=== PATIENT | female | born 2000 | race African-American/Black ===

== ENCOUNTER 2023-02-22 11:24 | Inpatient (IN) ==
--- NOTE | 2023-02-22 13:22 | XRay Report ---
XR lumbar spine min 4V routine CLINICAL HISTORY: Low back pain. Left buttock pain. COMPARISON STUDY: None. FINDINGS: Straightening of the lumbar spine. No fracture or subluxation. Disc spaces are preserved. T he visualized sacrum is intact. Punctate ossific density at the tip of the L4 spinous process is like ly chronic. The visualized sacrum is intact. Mild levoscoliosis of the lumbar spine. Punctate calcifi cation within the left deep pelvis is nonspecific but favors a phlebolith. IMPRESSION: No fracture or subluxation within the lumbar spine. ACT 112: Negative or not required by law. Electronically signed by: Claude Muñiz M.D. 02/22/2023 1:20 PM
--- NOTE | 2023-02-22 14:14 | Emergency Department Note ---
History of Present Illness General Chief complaint: Back Injury/Pain Stated complaint: LT SIDE BACK PAIN, HURTS WHEN BREATHING Time Seen by Provider: 02/22/23 13:49 History of Present Illness Maximum Pain Intensity: 6 This is a 22-year-old female that presents to the emergency department via private vehicle referred by [facility] with complaints of "chest pain, pain with a deep breath, back pain". Per review of the emergency transfer information as provided by [facility], patient's medical history is significant for that of anxiety, depression, PTSD, ADHD, insomnia, acid reflux. Patient was referred here today for evaluation of abdominal pain and back pain as well as increased heart rate. The patient notes that she is feeling better compared to earlier and did have some ibuprofen and Tylenol. Patient notes that the discomfort to the chest and back began earlier today around 3 AM. She notes that it occurred around the time that she had to go use the bathroom. Patient notes that she is currently at the rehabilitation facility for opiate use disorder noting Percocet use and also mental health. Patient denies any history of blood clot or heart attack. Per review of chart from Health system, vital signs obtained earlier today revealed a heart rate of 130. Also upon review of the patient's medication sheet she is currently on a multivitamin daily, Zoloft 50 mg p.o. daily as well as Suboxone 8/2 mg sublingual daily. Patient also on as needed acetaminophen, Benadryl, ibuprofen, melatonin per review of the medication administration sheets. There are other medications ordered as needed but no documentation of administration. Patient also notes increased stress as she notes her boyfriend just recently and is awaiting to hear about arrangements for the . Patient notes that she is from [place]. Surgical history she notes is significant for that of at age 19. No recent leg swelling. No IV drug use. No coughing. She does note recent cigarette smoking over the past few days which is a bit unusual for her Home Medications Medication Instructions Recorded Confirmed Type buprenorphine 8 mg-naloxone 2 mg 1 film buccal DAILY 02/22/23 02/22/23 History sublingual film (Suboxone) multivitamin 1 tab PO DAILY 02/22/23 02/22/23 History sertraline 50 mg tablet (Zoloft) 50 mg PO DAILY 02/22/23 02/22/23 History Allergies Allergy/AdvReac Type Severity Reaction Status Date / Time pollen extracts Allergy Unknown Verified 02/22/23 16:30 Past Med/Surg History Medical History Acid reflux ADHD Anxiety Depression Insomnia PTSD (post-traumatic stress disorder) Social History Smoking Status: Current some day smoker Tobacco Type: Cigarettes Cigarettes Per Day: 20; Second Hand Exposure: No; Do You Dip or Chew Tobacco: No; Tobacco Cessation Education Requested by Patient: No Hx Alcohol Use: Yes Hx Substance Use: No Preferred Language: Austrian Communication Ability: Effective Lens Blank Gauger Required: No Beliefs That Will Affect Care: None Current Living Situation: Alone Other Information That Helps Us Care for You: No Feels Safe at Home: Yes Safety Concerns: Feels Safe At This Time Assistive Devices: None Review of Systems A total of 10 systems reviewed and were otherwise negative Physical Exam Vital Signs Vital Signs - 24 hr 02/22/23 11:27 02/22/23 14:17 02/22/23 15:00 Temperature 36.7 C Temperature Source Temporal Artery Scan Pulse Rate 131 H 126 H 123 H Pulse Rate [Right Finger] Pulse Rate from SpO2 Sensor Pulse Rhythm [Right Finger] Respiratory Rate 18 16 Respiratory Effort / Characteristics Non-Labored Spontaneous Respiratory Depth Normal Respiratory Pattern Regular Blood Pressure 96/62 L 93/76 L Blood Pressure [Right Arm] Blood Pressure Mean 73 81 Blood Pressure Mean [Right Arm] Pulse Oximetry 92 96 Oxygen Delivery Method Room Air Room Air Sepsis Recent Fever Within 48 Hours No Sepsis New/Unexplained Change in Mental Status No Sepsis Action Taken by Nursing No Action Required 02/22/23 15:50 02/22/23 16:00 02/22/23 18:00 Temperature Temperature Source Pulse Rate 121 H 124 H 128 H Pulse Rate [Right Finger] Pulse Rate from SpO2 Sensor 120 H Pulse Rhythm [Right Finger] Respiratory Rate 14 19 20 Respiratory Effort / Characteristics Respiratory Depth Respiratory Pattern Blood Pressure 93/68 L 82/60 L Blood Pressure [Right Arm] Blood Pressure Mean 76 67 Blood Pressure Mean [Right Arm] Pulse Oximetry 93 92 99 Oxygen Delivery Method Room Air Room Air Sepsis Recent Fever Within 48 Hours Sepsis New/Unexplained Change in Mental Status Sepsis Action Taken by Nursing 02/22/23 18:10 02/22/23 18:45 02/22/23 18:47 Temperature Temperature Source Pulse Rate 125 H Pulse Rate [Right Finger] 136 H 133 H Pulse Rate from SpO2 Sensor Pulse Rhythm [Right Finger] Regular Regular Respiratory Rate 19 18 18 Respiratory Effort / Characteristics Respiratory Depth Normal Normal Respiratory Pattern Blood Pressure 82/60 L Blood Pressure [Right Arm] 89/70 L 86/58 L Blood Pressure Mean 67 Blood Pressure Mean [Right Arm] 76 67 Pulse Oximetry 98 98 98 Oxygen Delivery Method Room Air Room Air Room Air Sepsis Recent Fever Within 48 Hours Sepsis New/Unexplained Change in Mental Status Sepsis Action Taken by Nursing 02/22/23 18:32 02/22/23 18:32 02/22/23 18:44 Temperature Temperature Source Pulse Rate 126 H 135 H Pulse Rate [Right Finger] Pulse Rate from SpO2 Sensor Pulse Rhythm [Right Finger] Respiratory Rate 21 15 Respiratory Effort / Characteristics Respiratory Depth Respiratory Pattern Blood Pressure 81/54 L Blood Pressure [Right Arm] Blood Pressure Mean 65 Blood Pressure Mean [Right Arm] Pulse Oximetry Oxygen Delivery Method Sepsis Recent Fever Within 48 Hours Sepsis New/Unexplained Change in Mental Status Sepsis Action Taken by Nursing 02/22/23 18:44 Temperature Temperature Source Pulse Rate Pulse Rate [Right Finger] Pulse Rate from SpO2 Sensor Pulse Rhythm [Right Finger] Respiratory Rate Respiratory Effort / Characteristics Respiratory Depth Respiratory Pattern Blood Pressure 89/70 L Blood Pressure [Right Arm] Blood Pressure Mean 73 Blood Pressure Mean [Right Arm] Pulse Oximetry Oxygen Delivery Method Sepsis Recent Fever Within 48 Hours Sepsis New/Unexplained Change in Mental Status Sepsis Action Taken by Nursing VITAL SIGNS - Vital signs and nursing notes were reviewed. Tachycardic at 131, blood pressure 96/62. Respiratory rate 18. Temp 36.7. O2 sat 92 on room air GENERAL -22-year-old female appearing her stated age who is in no acute distress. Communicates well with provider and answers questions appropriately. SKIN - Without rashes. HEAD - NC/AT. EYES - PERRL with EOMI bilaterally. Sclera anicteric. Palpebral conjunctiva pink and moist with no injection noted. EARS - No deformities of external structures noted on gross examination bilaterally. No pain elicited with palpation of the tragus bilaterally. External auditory canals without discharge or otorrhea. Tympanic membranes pearly norton without retraction or bulging. No fluid or purulent material visualized behind the TM. Handle of malleus, umbo, cone of light, pars tensa/flaccid all easily visualized. NOSE - Midline and without cyanosis. No epistaxis or purulent drainage noted. Septum midline without deviation or septal hematoma noted. MOUTH/OROPHARYNX - Without perioral cyanosis. Buccal mucosa pink and moist and without leukoplakia. Tongue midline with equal elevation of palate bilaterally. No tonsillar hypertrophy, erythema, or exudates noted. Good dentition noted. NECK - Neck with FROM. Supple to palpation. No lymphadenopathy noted. No nuchal rigidity. LUNGS - Chest wall symmetric without accessory muscle use, intercostals retractions, or central cyanosis. Mildly diminished breath sound on the left compared to the right. No wheezes, rales, or rhonchi appreciated. CARDIAC -tachycardic. No murmurs noted. ABDOMEN - Abdominal contour normal without pulsations or visible masses. BS normoactive all four quadrants. No tenderness, palpable masses, hepatosplenomegaly, or ascites noted. MUSCULOSKELETAL: There is no reproducible tenderness overlying the C, T or L- spine spinous processes or paraspinous musculature EXTREMITIES - No clubbing or peripheral cyanosis. No pretibial edema present. +5/5 strength noted in UE/LE bilaterally. NEUROLOGIC - Cranial nerves II through XII grossly intact. PSYCH - A&Ox3 and cooperates fully with examiner. Pt is very pleasant and interacts well with examiner. Course Administered Medications Discontinued Medications Sodium Chloride (Nss 1000ml) 1,000 mls @ 999 mls/hr IV .Q1H1M RENETTA Stop: 02/22/23 15:15 Last Infusion: 02/22/23 15:21 Dose: 0 mls/hr Documented By: Admin: 02/22/23 14:19 Dose: 999 mls/hr Documented By: CHARLY Cefepime HCl (Maxipime) 2,000 mg in 20 mls @ 5 mls/min IV NOW STA; Protocol Stop: 02/22/23 16:25 Last Admin: 02/22/23 16:43 Dose: 5 mls/min Documented By: CHARLY Vancomycin HCl 1,750 mg/ (Sodium Chloride) 535 mls @ 200 mls/hr IV NOW ONE Stop: 02/22/23 19:02 Last Admin: 02/22/23 16:54 Dose: 200 mls/hr Documented By: CHARLY Sodium Chloride (Nss 1000ml) 1,000 mls @ 999 mls/hr IV .Q1H1M RENETTA Stop: 02/22/23 19:15 Last Infusion: 02/22/23 20:45 Dose: 0 mls/hr Documented By: Admin: 02/22/23 18:10 Dose: 999 mls/hr Documented By: CHARLY Metronidazole (Flagyl) 500 mg in 100 mls @ 100 mls/hr IV NOW STA; Protocol Stop: 02/22/23 19:53 Last Infusion: 02/22/23 20:44 Dose: 0 mls/hr Documented By: Admin: 02/22/23 19:17 Dose: 100 mls/hr Documented By: Pantoprazole Sodium 40 mg/ (Syringe) 10 mls @ 5 mls/min IV ONE ONE Stop: 02/22/23 19:31 Last Admin: 02/22/23 20:35 Dose: 5 mls/min Documented By: Lactated Ringer's (Lr) 500 mls @ 500 mls/hr IV .Q1H ONE Stop: 02/22/23 21:15 Last Infusion: 02/22/23 22:09 Dose: 0 mls/hr Documented By: Admin: 02/22/23 20:40 Dose: 500 mls/hr Documented By: Lactated Ringer's (Lr) 1,000 mls @ 105 mls/hr IV .Q9H32M [facility] Stop: 03/24/23 20:29 Last Admin: 02/22/23 22:10 Dose: Not Given Documented By: NUNU Ioversol (Ioversol 350 Mg 125ml Prefilled Syringe) 118 ml IV ONCE ONE Stop: 02/22/23 15:32 Last Admin: 02/22/23 15:31 Dose: 118 ml Documented By: GABRIELLE Ondansetron HCl (Ondansetron Inj 2 Mg/Ml 2 Ml Vial) 4 mg IV NOW STA Stop: 02/22/23 18:05 Last Admin: 02/22/23 18:10 Dose: 4 mg Documented By: CHARLY Medical Decision Making Laboratory Data 02/22/23 12:20 02/22/23 12:20 Lab Results 02/22/23 02/22/23 02/22/23 Range/Units 12:20 12:20 12:20 WBC 15.30 H (4.8-10.8) K/ul RBC 5.26 (4.20-5.40) M/uL Hgb 13.8 (12.0-16.0) g/dl Hct 40.3 (37.0-47.0) % MCV 76.6 L (80.0-100.0) fL MCH 26.2 (25.0-34.0) pg MCHC 34.2 (32.0-36.0) g/dL RDW Std Deviation 38.6 (36.4-46.3) fL RDW Coeff of Aldo 14.0 (11.5-14.5) % Plt Count 225 (130-400) K/uL MPV 11.4 (9.4-12.4) fL Immature Gran % (Auto) 0.6 % Neut % (Auto) 88.0 % Lymph % (Auto) 6.5 % [place] % (Auto) 4.2 % Eos % (Auto) 0.5 % Baso % (Auto) 0.2 % Neut # (Auto) 13.46 H (1.40-6.50) K/uL Lymph # (Auto) 0.99 L (1.2-3.4) K/uL [place] # (Auto) 0.65 H (0.11-0.59) K/uL Eos # (Auto) 0.08 (0-0.50) K/uL Baso # (Auto) 0.03 (0-0.2) K/uL Immature Gran # (Auto) 0.09 (0.01-0.20) K/uL PT 12.5 H (9.0-12.0) Seconds INR 1.2 H (0.9-1.1) APTT 31.8 H (21.0-31.0) Seconds PTT Ratio 1.1 ABG pH ABG pCO2 ABG pO2 ABG HCO3 ABG O2 Saturation ABG Base Excess Nahun Test VBG pH (7.36-7.41) VBG pCO2 (38-50) mmHg VBG pO2 mmHg VBG HCO3 mmol/L VBG O2 Saturation % VBG Base Excess mEq/L Barometric Pressure Oxygen Given Sodium 137 (136-145) mmol/L Potassium 3.6 (3.5-5.1) mmol/L Chloride 104 (98-107) mmol/L Carbon Dioxide 24 (21-32) mmol/L Anion Gap 9 (3-11) BUN 5 L (6-23) mg/dl Creatinine 0.58 L (0.6-1.2) mg/dl Est Cr Clr Drug Dosing 135.9 ml/min Est GFR ( Amer) > 150.0 ml/min Est GFR (Non-Af Amer) 131.8 ml/min BUN/Creatinine Ratio 8.6 L (10-20) Glucose 82 (70-99(Fasting)) mg/dl Lactate (0.4-2.0) mmol/L Calcium 9.0 (8.6-10.3) mg/dl Magnesium 1.7 (1.7-2.4) mg/dl Total Bilirubin 0.6 (0.2-1.0) mg/dl AST 19 (13-39) U/L ALT 9 (7-52) U/L Alkaline Phosphatase 93 (34-104) U/L Troponin I High Sens 3.0 (0-14) pg/ml Total Protein 7.0 (6.0-8.3) gm/dl Albumin 3.9 (3.4-5.0) gm/dl Globulin 3.1 (2.5-4.0) gm/dl Albumin/Globulin Ratio 1.3 (0.9-2) Lipase 6 L (11-82) U/L Procalcitonin (0-0.5) ng/ml TSH (0.300-4.500) uIu/ml HCG, Qual (Negative) Nasal Screen MRSA (PCR) (Negative) Adenovirus (PCR) (NotDetected) B. pertussis DNA (PCR) (NotDetected) B.parapertussis DNA PCR (NotDetected) C. pneumoniae DNA (PCR) (NotDetected) Coronavirus OC43 (PCR) (NotDetected) Coronavirus HKU1 (PCR) (NotDetected) Coronavirus 229E (PCR) (NotDetected) SARS-CoV-2 (PCR) (NotDetected) Coronavirus NL63 (PCR) (NotDetected) Human Metapneumovir PCR (NotDetected) Influenza Type A (PCR) (NotDetected) Influenza Type B (PCR) (NotDetected) M. pneumoniae (PCR) (NotDetected) Parainfluenza 1 (PCR) (NotDetected) Parainfluenza 2 (PCR) (NotDetected) Parainfluenza 3 (PCR) (NotDetected) Parainfluenza 4 (PCR) (NotDetected) RSV (PCR) (NotDetected) Entero/Rhino (PCR) (NotDetected) 02/22/23 02/22/23 02/22/23 Range/Units 12:20 12:20 14:37 WBC (4.8-10.8) K/ul RBC (4.20-5.40) M/uL Hgb (12.0-16.0) g/dl Hct (37.0-47.0) % MCV (80.0-100.0) fL MCH (25.0-34.0) pg MCHC (32.0-36.0) g/dL RDW Std Deviation (36.4-46.3) fL RDW Coeff of Aldo (11.5-14.5) % Plt Count (130-400) K/uL MPV (9.4-12.4) fL Immature Gran % (Auto) % Neut % (Auto) % Lymph % (Auto) % [place] % (Auto) % Eos % (Auto) % Baso % (Auto) % Neut # (Auto) (1.40-6.50) K/uL Lymph # (Auto) (1.2-3.4) K/uL [place] # (Auto) (0.11-0.59) K/uL Eos # (Auto) (0-0.50) K/uL Baso # (Auto) (0-0.2) K/uL Immature Gran # (Auto) (0.01-0.20) K/uL PT (9.0-12.0) Seconds INR (0.9-1.1) APTT (21.0-31.0) Seconds PTT Ratio ABG pH ABG pCO2 ABG pO2 ABG HCO3 ABG O2 Saturation ABG Base Excess Nahun Test VBG pH (7.36-7.41) VBG pCO2 (38-50) mmHg VBG pO2 mmHg VBG HCO3 mmol/L VBG O2 Saturation % VBG Base Excess mEq/L Barometric Pressure Oxygen Given Sodium (136-145) mmol/L Potassium (3.5-5.1) mmol/L Chloride (98-107) mmol/L Carbon Dioxide (21-32) mmol/L Anion Gap (3-11) BUN (6-23) mg/dl Creatinine (0.6-1.2) mg/dl Est Cr Clr Drug Dosing ml/min Est GFR ( Amer) ml/min Est GFR (Non-Af Amer) ml/min BUN/Creatinine Ratio (10-20) Glucose (70-99(Fasting)) mg/dl Lactate 2.0 (0.4-2.0) mmol/L Calcium (8.6-10.3) mg/dl Magnesium (1.7-2.4) mg/dl Total Bilirubin (0.2-1.0) mg/dl AST (13-39) U/L ALT (7-52) U/L Alkaline Phosphatase (34-104) U/L Troponin I High Sens (0-14) pg/ml Total Protein (6.0-8.3) gm/dl Albumin (3.4-5.0) gm/dl Globulin (2.5-4.0) gm/dl Albumin/Globulin Ratio (0.9-2) Lipase (11-82) U/L Procalcitonin 3.57 H (0-0.5) ng/ml TSH 0.306 (0.300-4.500) uIu/ml HCG, Qual Negative (Negative) Nasal Screen MRSA (PCR) (Negative) Adenovirus (PCR) (NotDetected) B. pertussis DNA (PCR) (NotDetected) B.parapertussis DNA PCR (NotDetected) C. pneumoniae DNA (PCR) (NotDetected) Coronavirus OC43 (PCR) (NotDetected) Coronavirus HKU1 (PCR) (NotDetected) Coronavirus 229E (PCR) (NotDetected) SARS-CoV-2 (PCR) (NotDetected) Coronavirus NL63 (PCR) (NotDetected) Human Metapneumovir PCR (NotDetected) Influenza Type A (PCR) (NotDetected) Influenza Type B (PCR) (NotDetected) M. pneumoniae (PCR) (NotDetected) Parainfluenza 1 (PCR) (NotDetected) Parainfluenza 2 (PCR) (NotDetected) Parainfluenza 3 (PCR) (NotDetected) Parainfluenza 4 (PCR) (NotDetected) RSV (PCR) (NotDetected) Entero/Rhino (PCR) (NotDetected) 02/22/23 02/22/23 02/22/23 Range/Units 17:13 17:13 18:53 WBC (4.8-10.8) K/ul RBC (4.20-5.40) M/uL Hgb (12.0-16.0) g/dl Hct (37.0-47.0) % MCV (80.0-100.0) fL MCH (25.0-34.0) pg MCHC (32.0-36.0) g/dL RDW Std Deviation (36.4-46.3) fL RDW Coeff of Aldo (11.5-14.5) % Plt Count (130-400) K/uL MPV (9.4-12.4) fL Immature Gran % (Auto) % Neut % (Auto) % Lymph % (Auto) % [place] % (Auto) % Eos % (Auto) % Baso % (Auto) % Neut # (Auto) (1.40-6.50) K/uL Lymph # (Auto) (1.2-3.4) K/uL [place] # (Auto) (0.11-0.59) K/uL Eos # (Auto) (0-0.50) K/uL Baso # (Auto) (0-0.2) K/uL Immature Gran # (Auto) (0.01-0.20) K/uL PT (9.0-12.0) Seconds INR (0.9-1.1) APTT (21.0-31.0) Seconds PTT Ratio ABG pH Cancelled ABG pCO2 Cancelled ABG pO2 Cancelled ABG HCO3 Cancelled ABG O2 Saturation Cancelled ABG Base Excess Cancelled Nahun Test Cancelled VBG pH (7.36-7.41) VBG pCO2 (38-50) mmHg VBG pO2 mmHg VBG HCO3 mmol/L VBG O2 Saturation % VBG Base Excess mEq/L Barometric Pressure Cancelled Oxygen Given Cancelled Sodium (136-145) mmol/L Potassium (3.5-5.1) mmol/L Chloride (98-107) mmol/L Carbon Dioxide (21-32) mmol/L Anion Gap (3-11) BUN (6-23) mg/dl Creatinine (0.6-1.2) mg/dl Est Cr Clr Drug Dosing ml/min Est GFR ( Amer) ml/min Est GFR (Non-Af Amer) ml/min BUN/Creatinine Ratio (10-20) Glucose (70-99(Fasting)) mg/dl Lactate (0.4-2.0) mmol/L Calcium (8.6-10.3) mg/dl Magnesium (1.7-2.4) mg/dl Total Bilirubin (0.2-1.0) mg/dl AST (13-39) U/L ALT (7-52) U/L Alkaline Phosphatase (34-104) U/L Troponin I High Sens (0-14) pg/ml Total Protein (6.0-8.3) gm/dl Albumin (3.4-5.0) gm/dl Globulin (2.5-4.0) gm/dl Albumin/Globulin Ratio (0.9-2) Lipase (11-82) U/L Procalcitonin (0-0.5) ng/ml TSH (0.300-4.500) uIu/ml HCG, Qual (Negative) Nasal Screen MRSA (PCR) Negative (Negative) Adenovirus (PCR) Not Detected (NotDetected) B. pertussis DNA (PCR) Not Detected (NotDetected) B.parapertussis DNA PCR Not Detected (NotDetected) C. pneumoniae DNA (PCR) Not Detected (NotDetected) Coronavirus OC43 (PCR) Not Detected (NotDetected) Coronavirus HKU1 (PCR) Not Detected (NotDetected) Coronavirus 229E (PCR) Not Detected (NotDetected) SARS-CoV-2 (PCR) Not Detected (NotDetected) Coronavirus NL63 (PCR) Not Detected (NotDetected) Human Metapneumovir PCR Not Detected (NotDetected) Influenza Type A (PCR) Not Detected (NotDetected) Influenza Type B (PCR) Not Detected (NotDetected) M. pneumoniae (PCR) Not Detected (NotDetected) Parainfluenza 1 (PCR) Not Detected (NotDetected) Parainfluenza 2 (PCR) Not Detected (NotDetected) Parainfluenza 3 (PCR) Not Detected (NotDetected) Parainfluenza 4 (PCR) Not Detected (NotDetected) RSV (PCR) Not Detected (NotDetected) Entero/Rhino (PCR) Not Detected (NotDetected) 02/22/23 Range/Units 18:53 WBC (4.8-10.8) K/ul RBC (4.20-5.40) M/uL Hgb (12.0-16.0) g/dl Hct (37.0-47.0) % MCV (80.0-100.0) fL MCH (25.0-34.0) pg MCHC (32.0-36.0) g/dL RDW Std Deviation (36.4-46.3) fL RDW Coeff of Aldo (11.5-14.5) % Plt Count (130-400) K/uL MPV (9.4-12.4) fL Immature Gran % (Auto) % Neut % (Auto) % Lymph % (Auto) % [place] % (Auto) % Eos % (Auto) % Baso % (Auto) % Neut # (Auto) (1.40-6.50) K/uL Lymph # (Auto) (1.2-3.4) K/uL [place] # (Auto) (0.11-0.59) K/uL Eos # (Auto) (0-0.50) K/uL Baso # (Auto) (0-0.2) K/uL Immature Gran # (Auto) (0.01-0.20) K/uL PT (9.0-12.0) Seconds INR (0.9-1.1) APTT (21.0-31.0) Seconds PTT Ratio ABG pH ABG pCO2 ABG pO2 ABG HCO3 ABG O2 Saturation ABG Base Excess Nahun Test VBG pH 7.33 L (7.36-7.41) VBG pCO2 40 (38-50) mmHg VBG pO2 58 mmHg VBG HCO3 21 mmol/L VBG O2 Saturation 89.7 % VBG Base Excess -4.5 mEq/L Barometric Pressure Oxygen Given Sodium (136-145) mmol/L Potassium (3.5-5.1) mmol/L Chloride (98-107) mmol/L Carbon Dioxide (21-32) mmol/L Anion Gap (3-11) BUN (6-23) mg/dl Creatinine (0.6-1.2) mg/dl Est Cr Clr Drug Dosing ml/min Est GFR ( Amer) ml/min Est GFR (Non-Af Amer) ml/min BUN/Creatinine Ratio (10-20) Glucose (70-99(Fasting)) mg/dl Lactate (0.4-2.0) mmol/L Calcium (8.6-10.3) mg/dl Magnesium (1.7-2.4) mg/dl Total Bilirubin (0.2-1.0) mg/dl AST (13-39) U/L ALT (7-52) U/L Alkaline Phosphatase (34-104) U/L Troponin I High Sens (0-14) pg/ml Total Protein (6.0-8.3) gm/dl Albumin (3.4-5.0) gm/dl Globulin (2.5-4.0) gm/dl Albumin/Globulin Ratio (0.9-2) Lipase (11-82) U/L Procalcitonin (0-0.5) ng/ml TSH (0.300-4.500) uIu/ml HCG, Qual (Negative) Nasal Screen MRSA (PCR) (Negative) Adenovirus (PCR) (NotDetected) B. pertussis DNA (PCR) (NotDetected) B.parapertussis DNA PCR (NotDetected) C. pneumoniae DNA (PCR) (NotDetected) Coronavirus OC43 (PCR) (NotDetected) Coronavirus HKU1 (PCR) (NotDetected) Coronavirus 229E (PCR) (NotDetected) SARS-CoV-2 (PCR) (NotDetected) Coronavirus NL63 (PCR) (NotDetected) Human Metapneumovir PCR (NotDetected) Influenza Type A (PCR) (NotDetected) Influenza Type B (PCR) (NotDetected) M. pneumoniae (PCR) (NotDetected) Parainfluenza 1 (PCR) (NotDetected) Parainfluenza 2 (PCR) (NotDetected) Parainfluenza 3 (PCR) (NotDetected) Parainfluenza 4 (PCR) (NotDetected) RSV (PCR) (NotDetected) Entero/Rhino (PCR) (NotDetected) Imaging Data Radiologist's Impression: Lumbar Spine X-Ray 02/22/23 12:22 XR lumbar spine min 4V routine CLINICAL HISTORY: Low back pain. Left buttock pain. COMPARISON STUDY: None. FINDINGS: Straightening of the lumbar spine. No fracture or subluxation. Disc spaces are preserved. The visualized sacrum is intact. Punctate ossific density at the tip of the L4 spinous process is likely chronic. The visualized sacrum is intact. Mild levoscoliosis of the lumbar spine. Punctate calcification within the left deep pelvis is nonspecific but favors a phlebolith. IMPRESSION: No fracture or subluxation within the lumbar spine. ACT 112: Negative or not required by law. Electronically signed by: Claude Muñiz M.D. 02/22/2023 1:20 PM Abdomen/Pelvis CT 02/22/23 14:02 CT OF THE ABDOMEN AND PELVIS WITH CONTRAST CLINICAL HISTORY: Back pain extending into abdomen. COMPARISON STUDY: None. TECHNIQUE: Following IV administration of 118 mL of Optiray, axial images of the abdomen and pelvis were obtained from the lung bases to the proximal femurs. Images were reviewed in the axial, sagittal, and coronal planes. IV contrast was administered without complication. Automated exposure control was utilized for the study. A dose lowering technique was utilized adhering to the principles of ALARA. FINDINGS: Extensive left lower lobe consolidation consistent with pneumonia is better depicted on the chest CT. No pneumatosis, free air or portal venous gas is present. Multiple small hypodense hepatic lesions likely reflect cysts. There is no biliary or pancreatic ductal dilatation. Spleen, adrenal glands, kidneys and pancreas are unremarkable. There is no hydronephrosis. There is trace fluid within the pelvis. The caliber and wall thickness of small and large bowel are normal. The appendix is normal. There is no lymphadenopathy. Corpus luteal cyst within the right ovary is present. Major vasculature is patent. No fluid co llection is present. There is minimal subcutaneous stranding of the upper right buttock. IMPRESSION: 1. No acute process within the abdomen or pelvis. 2. Extensive left lower lobe consolidation suggestive of pneumonia better depicted on the chest CT which will be reported separately. 3. Trace pelvic fluid, likely physiologic. ACT 112: Negative or not required by law. Electronically signed by: Alessandro Dickinson M.D. 02/22/2023 3:49 PM Chest CTA 02/22/23 14:02 CT ANGIOGRAPHY OF THE CHEST, PULMONARY EMBOLUS PROTOCOL CLINICAL HISTORY: Chest pain, tachycardia, pain with inspiration COMPARISON STUDY: No previous studies for comparison. TECHNIQUE: Following IV administration of 118 mL of Optiray, helical axial images of the chest were obtained utilizing the pulmonary embolus protocol. Maximal intensity projections and sagittal and coronal reformats were viewed on an independent 3D workstation. IV contrast was administered without complication. Automated exposure control was utilized for the study. A dose lowering technique was utilized adhering to the principles of ALARA. CT DOSE: 1116.33 mGy.cm FINDINGS: No pulmonary emboli are identified. There is no thoracic aortic dissection. The size of the heart is normal. There is no significant lymphadenopathy. Note is made of extensive consolidation within the left lower lobe with air bronchograms. There is no central obstructing mass. There is no pleural effusion. There is no cavitation. Right lung is clear. No pneumothorax is present. Bony thorax is unremarkable. Abdomen and pelvis CT will be reported separately. IMPRESSION: 1. No pulmonary emboli identified. 2. Extensive left lower lobe consolidation consistent with pneumonia. ACT 112: Negative or not required by law. Electronically signed by: Alessandro Dickinson M.D. 02/22/2023 4:31 PM MDM Narrative Patient was seen and evaluated as above in room C05. Review was performed of nursing notes and vital signs. I did review the patient's accompanying medical history as provided by [facility] with the patient is currently undergoing rehabilitation for opiate use disorder. After obtaining a thorough history and physical examination the above work up was performed. Options of care were discussed with the patient. Patient does present during a period of high volume and acuity in the emergency department. Upon examining the patient she had already had IV access established and labs drawn. She also had an x-ray performed already of the L-spine and an EKG performed. I reviewed the EKG which revealed sinus tachycardia at a rate of 124 bpm. QTc 465. QRS 80. There is no ST elevation. EKG of the L-spine was essentially negative. At this time with the patient presenting with chest pain, pain with a deep breath in the chest/back as well as back pain and abdominal pain with associated tachycardia I do believe that further work-up at this time is indicated. Additional laboratory studies were ordered in addition to CT scan of the chest to evaluate for PE as well as an abdomen/pelvis study with IV contrast to further evaluate her low back pain in the setting of tachycardia. Benefit versus risk of the imaging discussed with the patient and through shared decision making we will proceed. No headaches at this time. No neck pain. No signs of meningitis or encephalitis clinically. No signs of CVA on exam. Overall her pain is improved presently compared to earlier today. Patient also feels she is dehydrated. She was given a cup of Sprite (per her request) and also IV fluids. Labs reveal leukocytosis 15.30. No anemia. No thrombocytopenia. INR mildly elevated at 1.2. There is no evidence of kidney failure. No evidence of liver failure. Troponin x1 is negative. Procalcitonin 3.57. hCG negative. TSH reveals euthyroid state. Urinalysis does not reveal infection. Bio fire respiratory panel negative. CTA of the chest as well as abdomen/pelvis results are as above. Extensive left lower lobe consolidation consistent with pneumonia noted. Empiric IV antibiotics were ordered to include cefepime and vancomycin. Patient's tachycardia did improve with the first liter of fluids however the blood pressure did begin to trend downward. Additional IV fluids were ordered noting concern for sepsis. Case discussed with the hospitalist service. Hospitalist (Dr. Sapp) did asked that I reach out to the ICU as well. They came to evaluate the patient. Noting the patient's persistent tachycardia in the setting of concerning infectious process additional fluids are felt to be warranted. In discussing options with the hospitalist, Dr. Nazario we agreed to lactated Ringer's with a 500 cc bolus followed by maintenance rate of lactated Ringer's. Upon recheck of the patient she was noted to have an improved blood pressure at 105/71 but unfortunately did develop some hypoxia. She was in the low 80s on room air. O2 was started. Repeat assessment does not reveal any evidence of fluid overload clinically however noting this new finding additional fluids were held pending further trending of vital signs. Hypoxia is likely secondary to the patient's pneumonia. Please refer to further documentation regarding her stay. Blood cultures currently pending. While here in the ED the patient was reassessed several times. Patient continued to do well throughout her stay. She was mentating well and answering all questions appropriately. She did asked that I speak to her mother via phone. We did speak via speaker phone and I spoke to both her mother and father after obtaining consent from the patient. I answered all questions. Patient also notes she was upset that she does not have her cell phone as it is currently at [facility] system. I did ask our case management service to help identify options and obtaining the patient's phone at [facility]. Case was discussed with the attending physician. GCS: 15 In the evaluation and treatment of this patient the following differential diagnoses were entertained: GA, PE, dissection, pneumonia, pneumothorax, sepsis, among others. Impression & Plan Pneumonia, Sepsis Discharge Plan Visit Data Chief Complaint: Back Injury/Pain Stated Complaint: LT SIDE BACK PAIN, HURTS WHEN BREATHING ED Provider: Tamie Butler ED Midlevel Provider: Sabas Torres Discharge Problem: Pneumonia, Sepsis Patient Disposition: Admitted As Inpatient Condition: Good Discharge Instructions Interventions: ED Discharge Assessment Last Done: 02/22/23 21:40
[2023-02-22] MEDS ORDERED: SODIUM CHLORIDE 0.9% 1000ML 1,000 ML IV SCH ×2 (14:15→18:15)
[2023-02-22 14:27] LABS: Hematocrit (blood only) 40.3 % (37.0-47.0); Hemoglobin 13.8 g/dl (12.0-16.0); Mean Corpuscular Hemoglobin 26.2 pg (25.0-34.0); Mean Corpuscular Hgb Conc 34.2 g/dL (32.0-36.0); Mean Corpuscular Volume 76.6 fL (80.0-100.0); Mean Platelet Volume 11.4 fL (9.4-12.4); Platelet Count 225 K/uL (130-400); RDW Standard Deviation 38.6 fL (36.4-46.3); Red Blood Count 5.26 M/uL (4.20-5.40)
[2023-02-22 14:39] LABS: Albumin Level 3.9 gm/dl (3.4-5.0); Anion Gap 9 (3-11); Bilirubin,Total 0.6 mg/dl (0.2-1.0); Carbon Dioxide 24 mmol/L (21-32); Chloride 104 mmol/L (98-107); Magnesium 1.7 mg/dl (1.7-2.4); Potassium 3.6 mmol/L (3.5-5.1); Sodium 137 mmol/L (136-145)
[2023-02-22 14:40] LABS: INR 1.2 (0.9-1.1); Partial Thromboplastin Ratio 1.1; Partial Thromboplastin Time 31.8 Seconds (21.0-31.0); Prothrombin Time 12.5 Seconds (9.0-12.0)
[2023-02-22 14:45] LABS: Alanine Aminotransferase 9 U/L (7-52); Albumin Globulin Ratio 1.3 (0.9-2); Alkaline Phosphatase 93 U/L (34-104); Aspartate Aminotransferase 19 U/L (13-39); BUN Creatinine Ratio 8.6 (10-20); Blood Urea Nitrogen 5 mg/dl (6-23); Creatinine Clr Calc Pharmacy 135.9 ml/min; Est GFR (African American) > 150.0 ml/min; Est GFR (Non-African American) 131.8 ml/min; Globulin 3.1 gm/dl (2.5-4.0); Glucose 82 mg/dl (70-99(Fasting)); Lipase 6 U/L (11-82)
[2023-02-22 14:56] LABS: Basophils # (auto) 0.03 K/uL (0-0.2); Basophils % (auto) 0.2 %; Eosinophils # (auto) 0.08 K/uL (0-0.50); Eosinophils % (auto) 0.5 %; Immature Granulocytes # (auto) 0.09 K/uL (0.01-0.20); Immature Granulocytes % (auto) 0.6 %; Lymphocytes # (auto) 0.99 K/uL (1.2-3.4); Lymphocytes % (auto) 6.5 %; Monocytes # (auto) 0.65 K/uL (0.11-0.59); Monocytes % (auto) 4.2 %; Neutrophils # (auto) 13.46 K/uL (1.40-6.50)
[2023-02-22 14:58] LABS: Pregnancy Test, Serum Negative (Negative)
[2023-02-22 15:14] LABS: Procalcitonin 3.57 ng/ml (0-0.5)
[2023-02-22] MEDS ORDERED: IOVERSOL 350 MG 125mL Prefilled Syringe IV ONE (15:31)
--- NOTE | 2023-02-22 15:35 | Electrocardiogram Report ---
Test Reason : Blood Pressure : / mmHG Vent. Rate : 124 BPM Atrial Rate : 124 BPM P-R Int : 140 ms QRS Dur : 080 ms QT Int : 324 ms P-R-T Axes : 071 078 028 degrees QTc Int : 465 ms Sinus tachycardia Normal ECG No previous ECGs available Confirmed by Nicolas Busby ([id number]) on 02/22/2023 3:35:13 PM Referred By: REFERRED SELF Confirmed By:Nicolas Busby
--- NOTE | 2023-02-22 15:51 | CT Scan Report ---
CT OF THE ABDOMEN AND PELVIS WITH CONTRAST CLINICAL HISTORY: Back pain extending into abdomen. COMPARISON STUDY: None. TECHNIQUE: Following IV administration of 118 mL of Optiray, axial images of the abdomen and pelvis w ere obtained from the lung bases to the proximal femurs. Images were reviewed in the axial, sagittal, and coronal planes. IV contrast was administered without complication. Automated exposure control w as utilized for the study. A dose lowering technique was utilized adhering to the principles of NOHEMI Valenzuela. FINDINGS: Extensive left lower lobe consolidation consistent with pneumonia is better depicted on the chest CT. No pneumatosis, free air or portal venous gas is present. Multiple small hypodense hepatic lesions likely reflect cysts. There is no biliary or pancreatic ductal dilatation. Spleen, adrenal g lands, kidneys and pancreas are unremarkable. There is no hydronephrosis. There is trace fluid within the pelvis. The caliber and wall thickness of small and large bowel are normal. The appendix is norm al. There is no lymphadenopathy. Corpus luteal cyst within the right ovary is present. Major vasculat ure is patent. No fluid collection is present. There is minimal subcutaneous stranding of the upper r ight buttock. IMPRESSION: 1. No acute process within the abdomen or pelvis. 2. Extensive left lower lobe consolidation suggestive of pneumonia better depicted on the chest CT wh ich will be reported separately. 3. Trace pelvic fluid, likely physiologic. ACT 112: Negative or not required by law. Electronically signed by: Alessandro Dickinson M.D. 02/22/2023 3:49 PM
[2023-02-22] MEDS ORDERED: CEFEPIME 2,000 MG/20 ML VIAL IV STA (16:22)
[2023-02-22] MEDS ORDERED: VANCOMYCIN HCL 1,750 MG in SODIUM CHLORIDE 0.9% 500 ML IV ONE (16:22)
[2023-02-22] MEDS ORDERED: VANCOMYCIN CONSULT ACTIVE PRN (16:22)
--- NOTE | 2023-02-22 16:34 | CT Scan Report ---
CT ANGIOGRAPHY OF THE CHEST, PULMONARY EMBOLUS PROTOCOL CLINICAL HISTORY: Chest pain, tachycardia, pain with inspiration COMPARISON STUDY: No previous studies for comparison. TECHNIQUE: Following IV administration of 118 mL of Optiray, helical axial images of the chest were o btained utilizing the pulmonary embolus protocol. Maximal intensity projections and sagittal and cor onal reformats were viewed on an independent 3D workstation. IV contrast was administered without co mplication. Automated exposure control was utilized for the study. A dose lowering technique was ut ilized adhering to the principles of ALARA. CT DOSE: 1116.33 mGy.cm FINDINGS: No pulmonary emboli are identified. There is no thoracic aortic dissection. The size of th e heart is normal. There is no significant lymphadenopathy. Note is made of extensive consolidation w ithin the left lower lobe with air bronchograms. There is no central obstructing mass. There is no pl eural effusion. There is no cavitation. Right lung is clear. No pneumothorax is present. Bony thorax is unremarkable. Abdomen and pelvis CT will be reported separately. IMPRESSION: 1. No pulmonary emboli identified. 2. Extensive left lower lobe consolidation consistent with pneumonia. ACT 112: Negative or not required by law. Electronically signed by: Alessandro Dickinson M.D. 02/22/2023 4:31 PM
[2023-02-22] MEDS ORDERED: ONDANSETRON INJ 2 MG/ML 2 ML VIAL IV STA (18:04)
[2023-02-22 18:17] LABS: Adenovirus PCR Not Detected (NotDetected); Bordetella parapertussis PCR Not Detected (NotDetected); Bordetella pertussis PCR Not Detected (NotDetected); Chlamydia pneumoniae PCR Not Detected (NotDetected); Coronavirus 229E PCR Not Detected (NotDetected); Coronavirus CoV-2 (COVID19)PCR Not Detected (NotDetected); Coronavirus HKU1 PCR Not Detected (NotDetected); Coronavirus NL63 PCR Not Detected (NotDetected); Coronavirus OC43PCR Not Detected (NotDetected); Human Metapneumovirus PCR Not Detected (NotDetected); Influenza A PCR Not Detected (NotDetected); Influenza B PCR Not Detected (NotDetected); Mycoplasma pneumoniae PCR Not Detected (NotDetected); Parainfluenza Virus 1 PCR Not Detected (NotDetected); Parainfluenza Virus 2 PCR Not Detected (NotDetected); Parainfluenza Virus 3 PCR Not Detected (NotDetected); Parainfluenza Virus 4 PCR Not Detected (NotDetected); Respiratory Syncytial VirusPCR Not Detected (NotDetected); Rhinovirus/Enterovirus PCR Not Detected (NotDetected)
--- NOTE | 2023-02-22 18:23 | History & Physical Report ---
Date of Service February 22, 2023 Assessment & Plan (1) Sepsis: Plan: LLL pneumonia causing sepsis likely septic shock in a 22 yo female with history of drug abuse Patient will likely be admitted to the ICU if blood pressure does not improve with volume resuscitation. Patient will receive 2 liters of voume resuscitation. Blood pressure currently has a systoic below 90. Gave signout to resident and cirtical care team. Patient will be on cefepime and vanco. Also added anaerobic coverage in case patient aspirated, though history appears unlikely, and location being on left. However, given how sick patient is, will empirivally cover anerobic coverage. (2) Acid reflux: Plan: will add protonic (3) Depression: Plan: resume sertraline Plan dvt: lovenox History of Present Illness Chief Complaint: chest pain Primary Care Provider: NO PCP 22 yo female with history of GERD, drug use, and was in rehab at [place] presents with a 20 hour history of chest pain. Patient reports her pain was sharp, left sided and radiated to the back. She went to bed and woke up and continued having these symptoms. She was also found to have a HR in the 130s which prompted [facility] to bring her to the ED for evaluation. This was accompanied by fatigue, nausea. Patient reports no cough, fever chills, vomiting. Patient denies any sick contacts. Patient reports she did not vomit. Allergies Allergy/AdvReac Type Severity Reaction Status Date / Time pollen extracts Allergy Unknown Verified 02/22/23 16:30 Home Medications Medication Instructions Recorded Confirmed Type buprenorphine 8 mg-naloxone 2 mg 1 film buccal DAILY 02/22/23 02/22/23 History sublingual film (Suboxone) multivitamin 1 tab PO DAILY 02/22/23 02/22/23 History sertraline 50 mg tablet (Zoloft) 50 mg PO DAILY 02/22/23 02/22/23 History Past Med/Surg History Medical History Acid reflux ADHD Anxiety Depression Insomnia PTSD (post-traumatic stress disorder) Social History Smoking Status: Current some day smoker Tobacco Type: Cigarettes Cigarettes Per Day: 20; Second Hand Exposure: No; Do You Dip or Chew Tobacco: No; Tobacco Cessation Education Requested by Patient: No Hx Alcohol Use: Yes Hx Substance Use: No Preferred Language: Belgian Communication Ability: Effective Farm Manager Required: No Beliefs That Will Affect Care: None Current Living Situation: Alone Other Information That Helps Us Care for You: No Feels Safe at Home: Yes Safety Concerns: Feels Safe At This Time Assistive Devices: None Review of Systems Constitutional: + body aches (chest and back), + fatigue and + malaise; no fever, no chills, no sweats and no weakness Eyes: no blind spots, no diplopia and no discharge Respiratory: + dyspnea Cardiovascular: no chest pain Gastrointestinal: + nausea Genitourinary: + difficulty urinating (chronic for about 1 year); no dysuria, no urinary hesitancy and no urinary urgency Integumentary: no acne Neurologic: + headache(s) (last night but none today) Psychiatric: no behavioral changes Endocrine: + fatigue Hematologic / Lymphatic: no easy bleeding Physical Exam Constitutional: Patient is comfortable talking on phone, but appears somnolent. Eyes: PERRL, conjunctivae normal, anicteric sclerae ENMT: external ear and nose normal, oropharynx normal Neck: trachea midline, no thyromegaly Respiratory: normal respiratory effort, lungs clear to auscultation (except for decreased breath sound on the left.) Cardiovascular: Rate/Rhythm: + tachycardic Heart Sounds: normal S1 and normal S2 Gastrointestinal (Abdomen): normal bowel sounds, soft, nontender, no hepatosplenomegaly Musculoskeletal: no cyanosis or clubbing, extremities motor strength 5/5 Skin: no rashes, warm and dry Neurologic: PERRL, EOMI, accommodation nl, no face palsy, no dysarthria Psychiatric: A+Ox3, euthymic affect Lymphatic: no cervical or axillary lymphadenopathy Results & Data Results & Data Vital Signs (Past 12 Hours) Vital Signs Temp Pulse Resp BP Pulse Ox O2 Del Method 02/22/23 18:00 128 H 20 82/60 L 99 Room Air 02/22/23 16:00 124 H 19 93/68 L 92 Room Air 02/22/23 15:50 121 H 14 93 02/22/23 15:00 123 H 16 93/76 L 96 Room Air 02/22/23 14:17 126 H 02/22/23 11:27 36.7 C 131 H 18 96/62 L 92 Room Air PG Care Time/CCT Total # of Minutes Spent Total Time Spent with Patient: Total time spent is greater than 50% in coordination of care (as documented) at patient's floor/unit and/or counseling patient: Coding Level of Care Code 50218 INT INP/OBS CARE 3/75MIN Diagnoses Sepsis A41.9 Acid reflux K21.9 Depression F32.A
[2023-02-22] MEDS ORDERED: metroNIDAZOLE 500 MG/100 ML BAG IV STA (18:54)
[2023-02-22] MEDS ORDERED: PANTOprazole 40 MG in SYRINGE 0 ML IV ONE (19:30)
[2023-02-22] MEDS ORDERED: LACTATED RINGER'S 500 ML IV ONE (20:16)
[2023-02-22] MEDS ORDERED: LACTATED RINGER'S 1,000 ML IV SCH (20:30)
[2023-02-22 20:35] LABS: Base Excess VBG -4.5 mEq/L; HCO3 VBG 21 mmol/L; Oxygen Saturation VBG 89.7 %; PCO2 VBG 40 mmHg (38-50); PO2 VBG 58 mmHg; pH VBG 7.33 (7.36-7.41)
[2023-02-22 21:15] LABS: Appearance Urine Cloudy (Clear); Bilirubin Urine Negative (Negative); Blood Urine Negative (Negative); Color Urine Yellow; Glucose Urine UA Negative (Negative); Ketones Urine Trace (Negative); Leukocyte Esterase Urine Negative (Negative); Nitrite Urine Negative (Negative); Protein Urine Negative (Negative); Specific Gravity Urine 1.045 (1.000-1.030); Urobilinogen Urine Negative (Negative); pH Urine 5.5 (4.5-7.5)
[2023-02-22 21:29] LABS: Epithelial Cell Urine Auto >30 /lpf (0-5)
[2023-02-22 21:31] LABS: Bacteria Urine Automated Negative (Negative); Cast Urine Automated 0 /lpf (0-5); RBC Urine Automated 0-4 /hpf (0-4)
[2023-02-22 21:51] LABS: Amphetamines+Metham, Urine Neg (Neg); Barbiturates, Urine Neg (Neg); Benzodiazepine, Urine Neg (Neg); Cocaine, Urine Neg (Neg); MDMA (Ecstacy), Urine Neg (Neg); Methadone, Urine Neg (Neg); Opiate, Urine Neg (Neg); Phencyclidine, Urine Neg (Neg)
--- NOTE | 2023-02-22 22:05 | Pharmacy Report ---
Pharmacy PK ABX Note - Date of Service February 22, 2023 - Assessment and Plan Assessment 22 year old F receiving Vancomycin + Cefepime + Flagyl for treatment of sepsis secondary to pneumonia. Day #1 of antimicrobial therapy. Plan Vancomycin * Loading dose: 1750 mg IV x 1 * Maintenance dose: 1000 mg IV every 8 hours * Regimen is predicted to achieve target AUC/AB of 400-600 mg/L.hr * Random level ordered for: 02/24/23 Pharmacy will continue to follow and will adjust dose/frequency as necessary. Thank you. Pharmacy has transitioned to AUC monitoring for vancomycin. AUC/AB is the preferred PK/PD target and is associated with decreased risk of nephrotoxicity compared to traditional trough targets.
[2023-02-22] MEDS: ENOXAPARIN INJ 40 MG/0.4 ML SYR SQ SCH (23:03)
[2023-02-22] MEDS: CEFEPIME 2,000 MG in SYRINGE 0 ML IV SCH (23:04)
[2023-02-22] MEDS: VANCOMYCIN HCL 1,000 MG in SODIUM CHLORIDE 0.9% 250 ML IV SCH (23:04)
[2023-02-22] MEDS: metroNIDAZOLE 500 MG/100 ML BAG IV SCH (23:04)
[2023-02-23] MEDS: ACETAMINOPHEN 325 MG TAB PO PRN ×3 (03:27→23:14)
[2023-02-23 06:06] LABS: A calco-baum cmplx NotReported Not Detected (NotDetected); Bact fragilis Not Reported Not Detected (NotDetected); C auris Not Reported Not Detected (NotDetected); Calbicans Not Reported Not Detected (NotDetected); Candida glabrata Not Reported Not Detected (NotDetected); Candida krusei Not Reported Not Detected (NotDetected); Cneoformans/gatti Not Reported Not Detected (NotDetected); Cparapsilosis Not Reported Not Detected (NotDetected); Ctropicalis Not Reported Not Detected (NotDetected); E cloacae compx Not Reported Not Detected (NotDetected); Efaecalis Not Reported Not Detected (NotDetected); Efaecium Not Reported Not Detected (NotDetected); Enterobacterales Not Reported Not Detected (NotDetected); Escherichia coli Not Reported Not Detected (NotDetected); H influenzae Not Reported Not Detected (NotDetected); K aerogenes Not Reported Not Detected (NotDetected); Koxytoca Not Reported Not Detected (NotDetected); Kpneumoniae grp Not Reported Not Detected (NotDetected); Lmonocyt Not Reported Not Detected (NotDetected); N meningitidis Not Reported Not Detected (NotDetected); P aeruginosa Not Reported Not Detected (NotDetected); Proteus spp Not Reported Not Detected (NotDetected); Salmonella spp Not Reported Not Detected (NotDetected); Smarcescens Not Reported Not Detected (NotDetected); Staph lugdunensis Not Reported Not Detected (NotDetected); Staph spp. Not Reported Not Detected (NotDetected); Staphaureus Not Reported Not Detected (NotDetected); Staphepi Not Reported Not Detected (NotDetected); Stenmaltophilia Not Reported Not Detected (NotDetected); Strep agal(GrpB) Not Reported Not Detected (NotDetected); Strep pneum Not Reported DETECTED (NotDetected); Strep pyog (GrpA) Not Reported Not Detected (NotDetected); Strep spp Not Reported DETECTED (NotDetected); Streptococcus spp DETECTED (NotDetected)
[2023-02-23 06:23] LABS: Streptococcus pneumoniae DETECTED (NotDetected)
[2023-02-23 07:36] LABS: Est GFR (African American) > 150.0 ml/min; Est GFR (Non-African American) 131.8 ml/min
[2023-02-23 08:11] LABS: Anion Gap 5 (3-11); BUN Creatinine Ratio 11.5 (10-20); Blood Urea Nitrogen 7 mg/dl (6-23); C Reactive Protein 26.42 mg/dl (0-0.5); Calcium 7.8 mg/dl (8.6-10.3); Carbon Dioxide 26 mmol/L (21-32); Chloride 110 mmol/L (98-107); Creatinine Clr Calc Pharmacy 130.3 ml/min; Est GFR (African American) > 150.0 ml/min; Est GFR (Non-African American) 129.6 ml/min; Glucose 83 mg/dl (70-99(Fasting)); Potassium 3.7 mmol/L (3.5-5.1); Sodium 141 mmol/L (136-145)
[2023-02-23] MEDS: metroNIDAZOLE 500 MG/100 ML BAG IV SCH ×3 (08:22→22:59)
[2023-02-23] MEDS: CEFEPIME 2,000 MG in SYRINGE 0 ML IV SCH (08:22)
[2023-02-23] MEDS: MULTIVITAMIN TAB PO SCH (08:22)
[2023-02-23] MEDS: BUPRENORPHINE/NALOXONE 8/2 MG TAB SL SCH (08:22)
[2023-02-23] MEDS: SERTRALINE HCL 50 MG TABLET PO SCH (08:22)
[2023-02-23] MEDS: VANCOMYCIN HCL 1,000 MG in SODIUM CHLORIDE 0.9% 250 ML IV SCH (08:22)
[2023-02-23 08:29] LABS: Hematocrit (blood only) 34.4 % (37.0-47.0); Hemoglobin 11.5 g/dl (12.0-16.0); Mean Corpuscular Hemoglobin 26.1 pg (25.0-34.0); Mean Corpuscular Hgb Conc 33.4 g/dL (32.0-36.0); Mean Corpuscular Volume 78.2 fL (80.0-100.0); Mean Platelet Volume 11.2 fL (9.4-12.4); Platelet Count 205 K/uL (130-400); RDW Coefficient of Variation 13.9 % (11.5-14.5); RDW Standard Deviation 39.8 fL (36.4-46.3); White Blood Count 20.89 K/ul (4.8-10.8)
[2023-02-23 08:30] LABS: Basophils # (auto) 0.09 K/uL (0-0.2); Basophils % (auto) 0.4 %; Dohle Bodies 1+; Eosinophils # (auto) 0.17 K/uL (0-0.50); Eosinophils % (auto) 0.8 %; Immature Granulocytes # (auto) 0.41 K/uL (0.01-0.20); Lymphocytes # (auto) 1.84 K/uL (1.2-3.4); Lymphocytes % (auto) 8.8 %; Monocytes # (auto) 0.38 K/uL (0.11-0.59); Monocytes % (auto) 1.8 %; Neutrophils % (auto) 86.2 %; Polychromasia 1+
[2023-02-23] MEDS: PANTOprazole 40 MG in SYRINGE 0 ML IV SCH (11:04)
[2023-02-23] MEDS: cefTRIAXone SODIUM 2,000 MG in DEXTROSE 5% 50 ML IV SCH (16:04)
[2023-02-23] MEDS ORDERED: PROMETHAZINE HCL 12.5 MG/10 ML UDP PO PRN (17:36)
[2023-02-23] MEDS: ENOXAPARIN INJ 40 MG/0.4 ML SYR SQ SCH (22:58)
[2023-02-24] MEDS ORDERED: VANCOMYCIN LEVEL ONE (07:30)
[2023-02-24 07:42] LABS: Alanine Aminotransferase 8 U/L (7-52); Albumin Globulin Ratio 1.1 (0.9-2); Albumin Level 2.8 gm/dl (3.4-5.0); Alkaline Phosphatase 94 U/L (34-104); Anion Gap 4 (3-11); Aspartate Aminotransferase 16 U/L (13-39); BUN Creatinine Ratio 10.2 (10-20); Bilirubin,Total 0.3 mg/dl (0.2-1.0); Blood Urea Nitrogen 5 mg/dl (6-23); Calcium 8.2 mg/dl (8.6-10.3); Carbon Dioxide 27 mmol/L (21-32); Chloride 111 mmol/L (98-107); Creatinine Clr Calc Pharmacy 162.2 ml/min; Est GFR (African American) > 150.0 ml/min; Est GFR (Non-African American) 139.3 ml/min; Globulin 2.6 gm/dl (2.5-4.0); Glucose 70 mg/dl (70-99(Fasting)); Potassium 3.4 mmol/L (3.5-5.1); Sodium 142 mmol/L (136-145); Total Protein 5.4 gm/dl (6.0-8.3)
[2023-02-24 07:51] LABS: Hematocrit (blood only) 32.3 % (37.0-47.0); Hemoglobin 11.1 g/dl (12.0-16.0); Mean Corpuscular Hemoglobin 26.5 pg (25.0-34.0); Mean Corpuscular Hgb Conc 34.4 g/dL (32.0-36.0); Mean Corpuscular Volume 77.1 fL (80.0-100.0); Mean Platelet Volume 11.1 fL (9.4-12.4); Platelet Count 210 K/uL (130-400); RDW Coefficient of Variation 13.9 % (11.5-14.5); RDW Standard Deviation 38.8 fL (36.4-46.3); Red Blood Count 4.19 M/uL (4.20-5.40); White Blood Count 23.87 K/ul (4.8-10.8)
[2023-02-24 07:52] LABS: Basophils # (auto) 0.13 K/uL (0-0.2); Basophils % (auto) 0.5 %; Echinocytes 2+; Eosinophils # (auto) 0.33 K/uL (0-0.50); Eosinophils % (auto) 1.4 %; Immature Granulocytes # (auto) 0.37 K/uL (0.01-0.20); Immature Granulocytes % (auto) 1.6 %; Lymphocytes # (auto) 2.95 K/uL (1.2-3.4); Lymphocytes % (auto) 12.4 %; Monocytes # (auto) 0.59 K/uL (0.11-0.59); Monocytes % (auto) 2.5 %; Neutrophils % (auto) 81.6 %; Toxic Vacuolation 2+
[2023-02-24] MEDS: metroNIDAZOLE 500 MG/100 ML BAG IV SCH ×3 (08:26→22:30)
[2023-02-24] MEDS: SERTRALINE HCL 50 MG TABLET PO SCH (08:27)
[2023-02-24] MEDS: MULTIVITAMIN TAB PO SCH (08:27)
[2023-02-24] MEDS: BUPRENORPHINE/NALOXONE 8/2 MG TAB SL SCH (08:34)
[2023-02-24] MEDS: ACETAMINOPHEN 325 MG TAB PO PRN ×2 (08:36→23:43)
[2023-02-24] MEDS: ONDANSETRON INJ 2 MG/ML 2 ML VIAL IV PRN (09:41)
[2023-02-24] MEDS: PANTOprazole 40 MG in SYRINGE 0 ML IV SCH (09:41)
[2023-02-24] MEDS: cefTRIAXone SODIUM 2,000 MG in DEXTROSE 5% 50 ML IV SCH (16:26)
[2023-02-24] MEDS: ENOXAPARIN INJ 40 MG/0.4 ML SYR SQ SCH (22:31)
[2023-02-25 07:59] LABS: Alanine Aminotransferase 7 U/L (7-52); Albumin Level 2.7 gm/dl (3.4-5.0); Alkaline Phosphatase 89 U/L (34-104); Anion Gap 3 (3-11); Aspartate Aminotransferase 14 U/L (13-39); BUN Creatinine Ratio 11.6 (10-20); Bilirubin,Total 0.2 mg/dl (0.2-1.0); Blood Urea Nitrogen 5 mg/dl (6-23); Calcium 8.3 mg/dl (8.6-10.3); Carbon Dioxide 28 mmol/L (21-32); Chloride 109 mmol/L (98-107); Creatinine Clr Calc Pharmacy 186.9 ml/min; Est GFR (African American) > 150.0 ml/min; Est GFR (Non-African American) 145.4 ml/min; Globulin 2.6 gm/dl (2.5-4.0); Glucose 78 mg/dl (70-99(Fasting)); Potassium 3.3 mmol/L (3.5-5.1); Sodium 140 mmol/L (136-145); Total Protein 5.3 gm/dl (6.0-8.3)
[2023-02-25 08:17] LABS: Hematocrit (blood only) 28.1 % (37.0-47.0); Mean Corpuscular Hemoglobin 26.3 pg (25.0-34.0); Mean Corpuscular Hgb Conc 35.6 g/dL (32.0-36.0); Mean Corpuscular Volume 73.9 fL (80.0-100.0); Mean Platelet Volume 10.7 fL (9.4-12.4); Platelet Count 194 K/uL (130-400); RDW Standard Deviation 37.2 fL (36.4-46.3); White Blood Count 17.42 K/ul (4.8-10.8)
[2023-02-25 08:19] LABS: Basophils # (auto) 0.05 K/uL (0-0.2); Basophils % (auto) 0.3 %; Dohle Bodies 1+; Echinocytes 1+; Eosinophils # (auto) 0.39 K/uL (0-0.50); Eosinophils % (auto) 2.2 %; Immature Granulocytes # (auto) 0.08 K/uL (0.01-0.20); Immature Granulocytes % (auto) 0.5 %; Lymphocytes # (auto) 3.65 K/uL (1.2-3.4); Monocytes # (auto) 0.86 K/uL (0.11-0.59); Monocytes % (auto) 4.9 %; Neutrophils # (auto) 12.39 K/uL (1.40-6.50); Neutrophils % (auto) 71.1 %; Polychromasia 1+; Target Cells 1+
[2023-02-25] MEDS: metroNIDAZOLE 500 MG/100 ML BAG IV SCH (09:06)
[2023-02-25] MEDS: ACETAMINOPHEN 325 MG TAB PO PRN ×2 (09:07→17:11)
[2023-02-25] MEDS: BUPRENORPHINE/NALOXONE 8/2 MG TAB SL SCH (09:07)
[2023-02-25] MEDS: SERTRALINE HCL 50 MG TABLET PO SCH (09:08)
[2023-02-25] MEDS: MULTIVITAMIN TAB PO SCH (09:09)
[2023-02-25] MEDS: ONDANSETRON INJ 2 MG/ML 2 ML VIAL IV PRN (09:47)
[2023-02-25] MEDS ORDERED: POTASSIUM CHLORIDE 20 MEQ/15 ML UDC PO STA (10:13)
[2023-02-25] MEDS: PANTOprazole 40 MG in SYRINGE 0 ML IV SCH (10:15)
[2023-02-25] MEDS ORDERED: Nursing to Pharmacy Communication SCH (10:45)
--- NOTE | 2023-02-25 11:11 | Hospitalist Progress Note ---
Date of Service February 25, 2023 Assessment & Plan (1) Pneumonia: Plan: Left lower lobe pneumonia continue Rocephin IV discontinue Flagyl IV since patient's CBC shows a much improved WBC countfollow-up blood cultures surveillance were negative as opposed to the initial blood cultures came back because positive for strep pneumoniae Present on Admission?: Yes (2) Sepsis: Plan: Again strep pneumoniae blood cultures positive but surveillance blood cultures negative by day 2 Present on Admission?: Yes (3) Acid reflux: Plan: For now Protonix IV in the morning and famotidine p.o. at night Present on Admission?: Yes (4) Depression: Plan: Continue her outpatient regimen Present on Admission?: Yes Admission and Anticipated Discharge Date Admission Date: February 22, 2023 Anticipated date of discharge: 02/27/23 Subjective This patient seen during hospitalist rounds. Usually patient's mother is on the phone on speaker phone but she is at work today so will be told this information when she gets done with work. Patient complains of posterior left-sided back pain. It is not severe but it is nagging that she got Tylenol. She does not have any CVA tenderness or urinary complaints. She does have a left lower lobe pneumonia which concerns me enough to get a follow-up PA lateral chest x-ray today. She also complains of nausea and the Flagyl was given for covering anaerobes while her white count was high and her culture work-up was pending. In the meantime her culture work-up showed classic pneumococcal pneumonia with positive blood cultures for strep pneumoniae. Her surveillance cultures were negative for strep pneumoniae by day 2. This means she will stay on the IV Rocephin and DC the IV Flagyl due to nausea. She also has significant GERD symptoms and receiving a dose of IV Protonix daily right now and p.o. Pepcid 40 mg at hour of sleep. Disposition planning will be for tomorrow or Wednesday depending on how she is doing. Review of Systems Review of Systems: All systems reviewed & are unremarkable except as noted in HPI & below Constitutional: + fatigue and + weakness Respiratory: Patient has not yet produced a sputum to send for the laboratory evaluation because she does not have a productive cough Cardiovascular: Additional Comments: No chest pain and no shortness of breath Gastrointestinal: Significant reflux GERD Genitourinary: No complaint Musculoskeletal: No complaint Neurologic: No complaints Psychiatric: No complaints Physical Exam Physical Exam: Normocephalic atraumatic Constitutional: WD/WN, vitals as above Eyes: PERRLA EOMI conjunctiva clear ENMT: external ear and nose normal, oropharynx normal Neck: trachea midline, no thyromegaly Respiratory: Left basilar crackles Cardiovascular: RRR, no murmur, no edema Heart rate is 88 bpm Gastrointestinal (Abdomen): Positive bowel sounds in 4 quadrants soft and nontender Skin: Warm and dry Results & Data Results & Data Vital Signs (Past 12 Hours) Vital Signs Temp Pulse Resp BP Pulse Ox O2 Del Method 02/25/23 07:51 36.7 C 79 18 96/65 L 97 Room Air 02/25/23 03:22 36.7 C 87 16 104/59 L 93 Room Air Medications Administered Protonix 40 mg IV now famotidine 40 mg p.o. at bedtime continue Rocephin IV discontinue Flagyl IV PG Care Time/CCT Total # of Minutes Spent Total Time Spent with Patient: Total time spent is greater than 50% in coordination of care (as documented) at patient's floor/unit and/or counseling patient: Coding Level of Care Code 44400 SUB INP/OBS CARE 235MIN Diagnoses Pneumonia J18.9 Sepsis A41.9 Acid reflux K21.9 Depression F32.A Time Spent (min) 35
--- NOTE | 2023-02-25 11:40 | XRay Report ---
XR chest 2V PA/lateral HISTORY: 22 years-old Female Left sided back pain/Pneumonia acute chest pain with shortness of breat h COMPARISON: CTA chest 02/22/2023 TECHNIQUE: PA and lateral views of the chest FINDINGS: Cardiomediastinal and hilar silhouettes are within normal limits. There is persistent dense airspace consolidation within the majority of the left lower lobe which is similar to prior. No pneumothorax o r overt pulmonary edema. Small left pleural effusion. Right lung is clear. Bones appear grossly intac t. IMPRESSION: Left lower lobar pneumonia appears similar to the prior study. Interval development of a small left p arapneumonic effusion. ACT 112: Negative or not required by law. The above report was generated using voice recognition software. It may contain grammatical, syntax o r spelling errors. Electronically signed by: Royce Skelton M.D. 02/25/2023 11:39 AM
[2023-02-25 12:37] LABS: Marijuana Quant, GCMS Urine 144 ng/mL (<5)
--- NOTE | 2023-02-25 14:17 | Pulmonary Consultation ---
The patient was seen and case discussed with the pulmonary PA-C. The patient is a 22-year-old woman who has a very significant consolidated left lower lung pneumonia. It is likely a pneumococcal pneumonia given its appearance and her age. Indeed blood cultures support that diagnosis. She denied having any nausea or vomiting before her presentation to the hospital so it is unlikely aspiration. She does smoke cigarettes and has been escalating her cigarette intake. She also smokes marijuana. But she denies any smoking of cocaine and she has not recently been vaping. The pleuritic pain is likely secondary to irritation of her visceral pleura. By our assessment of the CT scan at least 2 days ago there was no pleural effusion. The follow-up chest x-ray may suggest some pleural effusion. But a bedside ultrasound assessment did not show any pleural effusion. Certainly with that pneumococcal pneumonia she is at risk of a parapneumonic effusion and even progression to an empyema. But she is on room air. She is not ill-appearing. She is not hypotensive. If there is a concern then a follow-up noncontrast CT scan could be performed in order to assess any pleural fluid accumulation. In the interim, I would treat continue to treat her pneumonia with IV antibiotics. Downgrading her at some point to to ceftriaxone should sufficient. I do not suspect Pseudomonas in this young patient. Nonsteroidals should also help with the pleuritic discomfort. I would provide her with incentive spirometry to encourage her to cough and deep breathe so as not to promote any further atelectasis. Date of Consultation February 25, 2023 Assessment & Plan (1) Pneumonia: (2) Tobacco abuse, episodic: (3) Marijuana use, episodic: Plan Attending: Dr. Lopez Impression: This is a 22-year-old -[place] female that resides in [facility]. She is currently at [facility] and was found to have shortness of breath and transferred to [facility] for further evaluation treatment. CTA of the chest was completed and shows significant consolidation in the left lower lobe. There is no evidence of pulmonary embolus, pleural effusion, pneumothorax. There is no significant mediastinal or hilar lymphadenopathy. There are no concerning pulmonary nodules or masses. No other significant findings on the CT. The pulmonary service been consulted as patient developed left lower flank pain this morning which she rated 8 out of 10. This was primarily resolved with Tylenol. Patient also had some nausea which resolved with Zofran. Patient has no hypoxia, fever, night sweats, other B type symptoms. Recommendations: 1. Left lower lobe pneumonia: * Appears to be a pneumococcal pneumonia. Patient currently is on ceftriaxone which should be adequate for IV treatment. Patient's white count is improving. Will trend procalcitonin tomorrow morning. * If patient continues to be asymptomatic with her pneumonia and procalcitonin and leukocytosis seem to be trending downward, could convert to oral antibiot ics for total of 7 to 10 days of treatment. * Oftentimes patients will develop some scant hemoptysis with bronchitis or pneumonia. If this is scant or just mucus that is tinged with blood, can monitor. If patient would develop hemoptysis with clots larger than a dime, patient should be reevaluated for possible pulmonary infarct. This is relatively unlikely. * Flank pain associated with pneumonia can be treated conservatively with Tylenol. This can be continued as patient had relief this morning * Bedside ultrasound with no evidence of pleural effusion. * If patient continues to have worsening symptoms or complaints, a repeat CT scan of the chest without contrast be appropriate * Patient should have follow-up chest x-ray in 2 to 3 weeks to follow-up for resolution of her left lower lobe pneumonia 2. Episodic tobacco abuse: * Tobacco products should be avoided by patient. * Encouraged continued abstention of all tobacco products 3. Episodic marijuana use: * Inhalation of any smoke should be avoided * Patient also should avoid vaping of any product Thank you very much for including us in the care of this patient. The pulmonary service will sign off for now. Please feel free to reconsult or call with any questions. Please refer to Dr. Lopez's addendum for further recommendations and corrections. History of Present Illness Reason for Consultation: Pneumonia versus pleural effusion Requesting Physician: Dr. Mariee from the [facility] hospitalist group Attending Physician: Gatito Mariee, DO History of Present Illness Attending: Dr. Lopez This is a 22-year-old -[place] female from [facility]. She is currently at [facility] and was referred here for shortness of breath. He was admitted on 02/22/2023 for further evaluation and treatment of left lower lobe pneumonia. Patient reports that she developed symptoms the night before admission and was [facility]. She denies any fever, chills, sweats, rigors. No hemoptysis. No prior history of pulmonary disease. Not on regular use of metered-dose inhalers, steroids, other pulmonary medications. No prior history of pneumonia. No prior history of thromboembolic disease including deep vein thrombosis or pulmonary emboli. No known cardiac or genetic mutations. Patient reports that she feels like she is improving. However, she did develop severe left-sided flank pain this morning which was new to her. She was given Tylenol and flank pain significantly improved. Patient also states that in association with the pain she had nausea which was resolved with 1 dose of Zosyn. Patient has an episodic tobacco abuse history. No regular smoking of cigarettes but occasionally will smoke during stressful periods Patient also reports that she has smoked marijuana at home in [place] but not on a regular basis for prolonged periods of time. No history of childhood asthma. No significant seasonal allergies. No other reports of pulmonary disorder. No history of malignancy. Patient reports that she is not on any oral control or other hormone replacement. Allergies Allergy/AdvReac Type Severity Reaction Status Date / Time pollen extracts Allergy Unknown Verified 02/22/23 16:30 Home Medications Medication Instructions Recorded Confirmed Type buprenorphine 8 mg-naloxone 2 mg 1 film buccal DAILY 02/22/23 02/22/23 History sublingual film (Suboxone) multivitamin 1 tab PO DAILY 02/22/23 02/22/23 History sertraline 50 mg tablet (Zoloft) 50 mg PO DAILY 02/22/23 02/22/23 History Patient History Medical History (Updated 02/25/23 @ 14:05 by Hakeem Love PA-C) Acid reflux ADHD Anxiety Depression Insomnia Marijuana use, episodic PTSD (post-traumatic stress disorder) Tobacco abuse, episodic Social History Smoking Status: Current some day smoker Tobacco Type: Cigarettes Cigarettes Per Day: 20; Second Hand Exposure: No; Do You Dip or Chew Tobacco: No; Tobacco Cessation Education Requested by Patient: No Hx Alcohol Use: Yes Hx Substance Use: No Preferred Language: Taiwanese Communication Ability: Effective Merchandise Flow Team Leader Required: No Beliefs That Will Affect Care: None Current Living Situation: Alone Other Information That Helps Us Care for You: No Feels Safe at Home: Yes Safety Concerns: Feels Safe At This Time Assistive Devices: None Review of Systems Review of Systems: A total of 10 systems was reviewed and is negative other than as listed in the HPI Physical Exam Physical Exam: GENERAL : No acute distress EYES: No icterus, gaze conjugate NOSE: No evidence of epistaxis MOUTH: No lesions or candidiasis NECK: Supple LUNGS: No appreciation of significant rales or rhonchi. No bronchospasm. P atient is positive for egophony in left lower lobe HEART: Regular, rate controlled ABDOMEN: Soft, NT, ND, BS Present EXTREMITIES: No LE edema, pedal pulses intact NEURO: A&OX3 Results & Data Results & Data Vital Signs (Past 12 Hours) Vital Signs Temp Pulse Pulse Resp BP Pulse Ox O2 Del Method 02/25/23 12:30 Room Air 02/25/23 12:28 79 02/25/23 11:21 37.0 C 72 18 109/73 97 Room Air 02/25/23 07:51 36.7 C 79 18 96/65 L 97 Room Air 02/25/23 03:22 36.7 C 87 16 104/59 L 93 Room Air Critical Care Results & Data Vital Signs (Past 12 Hours) Vital Signs Temp Pulse Pulse Resp BP Pulse Ox O2 Del Method 02/25/23 12:30 Room Air 02/25/23 12:28 79 02/25/23 11:21 37.0 C 72 18 109/73 97 Room Air 02/25/23 07:51 36.7 C 79 18 96/65 L 97 Room Air 02/25/23 03:22 36.7 C 87 16 104/59 L 93 Room Air Lab & Micro Results (Past 24 Hours) RBC 3.80 M/uL (4.20-5.40) L 02/25/23 WBC 17.42 K/ul (4.8-10.8) H 02/25/23 Hgb 10.0 g/dl (12.0-16.0) L 02/25/23 Hct 28.1 % (37.0-47.0) L 02/25/23 MCV 73.9 fL (80.0-100.0) L 02/25/23 MCH 26.3 pg (25.0-34.0) 02/25/23 MCHC 35.6 g/dL (32.0-36.0) 02/25/23 RDW Standard Deviation 37.2 fL (36.4-46.3) 02/25/23 RDW Coefficient of Variation 14.0 % (11.5-14.5) 02/25/23 Plt Count 194 K/uL (130-400) 02/25/23 MPV 10.7 fL (9.4-12.4) 02/25/23 Neutrophils (%) (Auto) 71.1 % 02/25/23 Lymphocytes (%) (Auto) 21.0 % 02/25/23 Monocytes # (Auto) 0.86 K/uL (0.11-0.59) H 02/25/23 Eosinophils # (Auto) 0.39 K/uL (0-0.50) 02/25/23 Immature Granulocyte % (Auto) 0.5 % 02/25/23 Neutrophils # (Auto) 12.39 K/uL (1.40-6.50) H 02/25/23 Lymphocytes # (Auto) 3.65 K/uL (1.2-3.4) H 02/25/23 Monocytes # (Auto) 0.86 K/uL (0.11-0.59) H 02/25/23 Eosinophils # (Auto) 0.39 K/uL (0-0.50) 02/25/23 Basophils # (Auto) 0.05 K/uL (0-0.2) 02/25/23 Immature Granulocyte # (Auto) 0.08 K/uL (0.01-0.20) 3 Polychromasia 1+ 02/25/23 Echinocytes 1+ 02/25/23 Target Cells 1+ 02/25/23 Dohle Bodies 1+ 02/25/23 Na 140 mmol/L (136-145) 02/25/23 K 3.3 mmol/L (3.5-5.1) L 02/25/23 Cl 109 mmol/L (98-107) H 02/25/23 CO2 28 mmol/L (21-32) 02/25/23 Anion Gap 3 (3-11) 02/25/23 BUN 5 mg/dl (6-23) L 02/25/23 Creatinine 0.43 mg/dl (0.6-1.2) L 02/25/23 Estimated GFR ( Amer) > 150.0 ml/min 02/25/23 Estimated GFR (Non-Af Amer) 145.4 ml/min 02/25/23 BUN/Creatinine Ratio 11.6 (10-20) 02/25/23 Glu 78 mg/dl (70-99(Fasting)) 02/25/23 Ca 8.3 mg/dl (8.6-10.3) L 02/25/23 Total Bilirubin 0.2 mg/dl (0.2-1.0) 02/25/23 AST 14 U/L (13-39) 02/25/23 ALT 7 U/L (7-52) 02/25/23 Alkaline Phosphatase 89 U/L (34-104) 02/25/23 TP 5.3 gm/dl (6.0-8.3) L 02/25/23 Albumin 2.7 gm/dl (3.4-5.0) L 02/25/23 Globulin 2.6 gm/dl (2.5-4.0) 02/25/23 Albumin/Globulin Ratio 1.0 (0.9-2) 02/25/23 Calcium Level 8.3 mg/dl (8.6-10.3) L 02/25/23 07:19 Microbiology 02/22/23 14:37 Aerobic Blood Culture - Preliminary Blood Streptococcus pneumoniae Anaerobic Blood Culture - Preliminary No growth in Anaerobic bottle after 48 hours. 02/23/23 15:59 Aerobic Blood Culture - Preliminary Blood No growth in Aerobic bottle after 24 hours. Anaerobic Blood Culture - Final 02/23/23 15:57 Aerobic Blood Culture - Preliminary Blood No growth in Aerobic bottle after 24 hours. Anaerobic Blood Culture - Preliminary No growth in Anaerobic bottle after 24 hours. 02/22/23 14:37 Aerobic Blood Culture - Preliminary Blood No growth in Aerobic bottle after 48 hours. Anaerobic Blood Culture - Preliminary Streptococcus pneumoniae Diagnostic Findings (Past 24 Hours) Chest X-Ray 02/25/23 10:31 XR chest 2V PA/lateral HISTORY: 22 years-old Female Left sided back pain/Pneumonia acute chest pain with shortness of breath COMPARISON: CTA chest 02/22/2023 TECHNIQUE: PA and lateral views of the chest FINDINGS: Cardiomediastinal and hilar silhouettes are within normal limits. There is persistent dense airspace consolidation within the majority of the left lower lobe which is similar to prior. No pneumothorax or overt pulmonary edema. Small left pleural effusion. Right lung is clear. Bones appear grossly intact. IMPRESSION: Left lower lobar pneumonia appears similar to the prior study. Interval development of a small left parapneumonic effusion. ACT 112: Negative or not required by law. The above report was generated using voice recognition software. It may contain grammatical, syntax or spelling errors. Electronically signed by: Royce Skelton M.D. 02/25/2023 11:[address] ANGIOGRAPHY OF THE CHEST, PULMONARY EMBOLUS PROTOCOL 02/22/2023 CLINICAL HISTORY: Chest pain, tachycardia, pain with inspiration COMPARISON STUDY: No previous studies for comparison. TECHNIQUE: Following IV administration of 118 mL of Optiray, helical axial images of the chest were obtained utilizing the pulmonary embolus protocol. Maximal intensity projections and sagittal and coronal reformats were viewed on an independent 3D workstation. IV contrast was administered without complication. Automated exposure control was utilized for the study. A dose lowering technique was utilized adhering to the principles of ALARA. CT DOSE: 1116.33 mGy.cm FINDINGS: No pulmonary emboli are identified. There is no thoracic aortic dissection. The size of the heart is normal. There is no significant lymphadenopathy. Note is made of extensive consolidation within the left lower lobe with air bronchograms. There is no central obstructing mass. There is no pleural effusion. There is no cavitation. Right lung is clear. No pneumothorax is present. Bony thorax is unremarkable. Abdomen and pelvis CT will be reported separately. IMPRESSION: 1. No pulmonary emboli identified. 2. Extensive left lower lobe consolidation consistent with pneumonia. ACT 112: Negative or not required by law. Electronically signed by: Alessandro Dickinson M.D. 02/22/2023 4:31 PM I & O Totals 24 Hours 02/24/23 02/25/23 02/26/23 06:59 06:59 06:59 Intake Total 3410 / 3410 2120 / 2120 100 / 100 Output Total 501 / 501 Balance 3410 / 3410 1619 / 1619 100 / 100 Cumulative 02/22/23 11:24 thru 02/25/23 11:21 Intake Total 9360 Output Total 1901 Balance 7459 RT Ventilator Mngmt (Last Documented) Ventilator Ordered Settings Respiratory Rate 18 02/25/23 11:21 Ventilator - PT Measurements Respiratory Rate 18 PG Care Time/CCT Total # of Minutes Spent Total Time Spent with Patient: Total time spent is greater than 50% in coordination of care (as documented) at patient's floor/unit and/or counseling patient:50 minutes including interview and physical examination of patient with mother on patient's speaker phone as initiated by the patient Coding Level of Care Code 70307 IN/OBS CONSULT LVL 3,45M Diagnoses Pneumonia J18.9 Tobacco abuse, episodic Z72.0 Marijuana use, episodic F12.90 Time Spent (min) 50
[2023-02-25] MEDS: cefTRIAXone SODIUM 2,000 MG in DEXTROSE 5% 50 ML IV SCH (16:03)
[2023-02-25] MEDS: FAMOTIDINE 40 MG TABLET PO SCH (21:03)
[2023-02-25] MEDS: ENOXAPARIN INJ 40 MG/0.4 ML SYR SQ SCH (21:03)
--- NOTE | 2023-02-25 23:30 | Hospitalist Progress Note ---
Date of Service February 24, 2023 Assessment & Plan Admission and Anticipated Discharge Date Admission Date: February 22, 2023 Subjective February 24, 2023 date of service Patient is seen on rounds with mother on speaker phone. Patient is experiencing better breathing and she has not brought up sputum of any sort. Patient has some left-sided back pain below the scapula and also has some nausea. She is on a combination of Rocephin and Flagyl IV. Follow-up chest x-ray PA and lateral will help determine prognosis. Review of Systems Review of Systems: A total of 10 systems was reviewed and is negative other than as listed in the HPI Constitutional: + fatigue and + weakness Eyes: no blind spots, no diplopia and no discharge Respiratory: Patient has not yet produced a sputum to send for the laboratory evaluation because she does not have a productive cough Cardiovascular: Additional Comments: No chest pain and no shortness of breath Gastrointestinal: Significant reflux GERD Genitourinary: No complaint Musculoskeletal: No complaint Integumentary: no acne Neurologic: No complaints Psychiatric: No complaints Endocrine: + fatigue Hematologic / Lymphatic: no easy bleeding Physical Exam Physical Exam: Normocephalic atraumatic Constitutional: WD/WN, vitals as above ENMT: external ear and nose normal, oropharynx normal Neck: trachea midline, no thyromegaly Cardiovascular: RRR, no murmur, no edema Results & Data Results & Data Vital Signs (Past 12 Hours) Vital Signs Temp Pulse Pulse Resp BP Pulse Ox Pulse Ox 02/25/23 22:51 36.8 C 84 20 121/75 97 02/25/23 20:00 97 02/25/23 19:52 36.8 C 71 19 99/65 L 97 02/25/23 18:56 67 02/25/23 16:04 36.7 C 73 24 96/72 L 97 02/25/23 12:30 02/25/23 12:28 79 O2 Del Method O2 Del Method 02/25/23 22:51 Room Air 02/25/23 20:00 Room Air 02/25/23 19:52 Room Air 02/25/23 18:56 02/25/23 16:04 Room Air 02/25/23 12:30 Room Air 02/25/23 12:28 PG Care Time/CCT Total # of Minutes Spent Total Time Spent with Patient: Total time spent is greater than 50% in coordination of care (as documented) at patient's floor/unit and/or counseling patient: Coding Level of Care Code 59514 SUB INP/OBS CARE 2/35MIN Diagnoses Time Spent (min) 42
--- NOTE | 2023-02-25 23:40 | Hospitalist Progress Note ---
Date of Service February 23, 2023 Assessment & Plan (1) Marijuana use, episodic: Admission and Anticipated Discharge Date Admission Date: February 22, 2023 Subjective Patient seen on hospitalist rounds to include a conversation with patient's mother over the telephone. Physical Exam Constitutional: WD/WN, vitals as above Respiratory: Crackles left base Cardiovascular: Regular Tachycardic Results & Data Results & Data Vital Signs (Past 12 Hours) Vital Signs Temp Pulse Pulse Resp BP Pulse Ox Pulse Ox 02/25/23 22:51 36.8 C 84 20 121/75 97 02/25/23 20:00 97 02/25/23 19:52 36.8 C 71 19 99/65 L 97 02/25/23 18:56 67 02/25/23 16:04 36.7 C 73 24 96/72 L 97 02/25/23 12:30 02/25/23 12:28 79 O2 Del Method O2 Del Method 02/25/23 22:51 Room Air 02/25/23 20:00 Room Air 02/25/23 19:52 Room Air 02/25/23 18:56 02/25/23 16:04 Room Air 02/25/23 12:30 Room Air 02/25/23 12:28 PG Care Time/CCT Total # of Minutes Spent Total Time Spent with Patient: Total time spent is greater than 50% in coordination of care (as documented) at patient's floor/unit and/or counseling patient: Coding Level of Care Code 25889 SUB INP/OBS CARE 2/35MIN Diagnoses Marijuana use, episodic F12.90 Time Spent (min) 35
[2023-02-26] MEDS: SERTRALINE HCL 50 MG TABLET PO SCH (08:10)
[2023-02-26] MEDS: MULTIVITAMIN TAB PO SCH (08:10)
[2023-02-26] MEDS: BUPRENORPHINE/NALOXONE 8/2 MG TAB SL SCH (08:10)
[2023-02-26] MEDS: ACETAMINOPHEN 325 MG TAB PO PRN ×2 (08:14→21:25)
[2023-02-26 08:41] LABS: Alanine Aminotransferase 6 U/L (7-52); Albumin Level 2.8 gm/dl (3.4-5.0); Alkaline Phosphatase 88 U/L (34-104); Anion Gap 4 (3-11); Aspartate Aminotransferase 15 U/L (13-39); BUN Creatinine Ratio 11.9 (10-20); Bilirubin,Total 0.2 mg/dl (0.2-1.0); Blood Urea Nitrogen 5 mg/dl (6-23); Calcium 8.4 mg/dl (8.6-10.3); Carbon Dioxide 29 mmol/L (21-32); Chloride 108 mmol/L (98-107); Creatinine Clr Calc Pharmacy 189.9 ml/min; Est GFR (African American) > 150.0 ml/min; Est GFR (Non-African American) 146.5 ml/min; Globulin 2.8 gm/dl (2.5-4.0); Glucose 72 mg/dl (70-99(Fasting)); Potassium 3.2 mmol/L (3.5-5.1); Sodium 141 mmol/L (136-145); Total Protein 5.6 gm/dl (6.0-8.3)
[2023-02-26] MEDS ORDERED: FAMOTIDINE 40 MG TABLET PO SCH (09:00)
[2023-02-26 09:31] LABS: Basophils # (auto) 0.04 K/uL (0-0.2); Basophils % (auto) 0.4 %; Eosinophils # (auto) 0.34 K/uL (0-0.50); Eosinophils % (auto) 3.5 %; Hematocrit (blood only) 29.6 % (37.0-47.0); Hemoglobin 10.3 g/dl (12.0-16.0); Immature Granulocytes # (auto) 0.05 K/uL (0.01-0.20); Immature Granulocytes % (auto) 0.5 %; Lymphocytes # (auto) 3.47 K/uL (1.2-3.4); Mean Corpuscular Hemoglobin 25.8 pg (25.0-34.0); Mean Corpuscular Hgb Conc 34.8 g/dL (32.0-36.0); Mean Corpuscular Volume 74.2 fL (80.0-100.0); Monocytes # (auto) 0.71 K/uL (0.11-0.59); Monocytes % (auto) 7.4 %; Neutrophils # (auto) 5.04 K/uL (1.40-6.50); Neutrophils % (auto) 52.2 %; Platelet Count 217 K/uL (130-400); RDW Coefficient of Variation 14.3 % (11.5-14.5); RDW Standard Deviation 38.5 fL (36.4-46.3); Red Blood Count 3.99 M/uL (4.20-5.40); White Blood Count 9.65 K/ul (4.8-10.8)
[2023-02-26] MEDS: PANTOprazole 40 MG in SYRINGE 0 ML IV SCH (11:13)
[2023-02-26] MEDS: cefTRIAXone SODIUM 2,000 MG in DEXTROSE 5% 50 ML IV SCH (16:22)
[2023-02-26] MEDS ORDERED: POTASSIUM CHLORIDE 20 MEQ/15 ML UDC PO STA (18:49)
[2023-02-26] MEDS: ENOXAPARIN INJ 40 MG/0.4 ML SYR SQ SCH (21:18)
[2023-02-26] MEDS: FAMOTIDINE 40 MG TABLET PO SCH (21:18)
--- NOTE | 2023-02-27 00:03 | Hospitalist Progress Note ---
Date of Service February 26, 2023 Assessment & Plan Admission and Anticipated Discharge Date Admission Date: February 22, 2023 Subjective Patient seen on hospitalist rounds to include a conversation with patient's mother over the telephone face time. Patient is feeling better today with no complaints of nausea or vomiting no shortness of breath on room air and notably better with respect to left-sided back pain she had yesterday. Pulmonary consultation much appreciated. Her response to Rocephin and Flagyl given up until yesterday and now just Rocephin has been excellent. Physical Exam Constitutional: WD/WN, vitals as above Eyes: PERRL, conjunctivae normal, anicteric sclerae ENMT: external ear and nose normal, oropharynx normal Neck: trachea midline, no thyromegaly Respiratory: Lungs are equal but there is still minimal residual left basilar crackles Cardiovascular: RRR, no murmur, no edema Gastrointestinal (Abdomen): normal bowel sounds, soft, nontender, no hepatosplenomegaly Musculoskeletal: no cyanosis or clubbing, extremities motor strength 5/5 Skin: no rashes, warm and dry Neurologic: PERRL, EOMI, accommodation nl, no face palsy, no dysarthria Psychiatric: A+Ox3, euthymic affect Results & Data Results & Data Vital Signs (Past 12 Hours) Vital Signs Temp Pulse Pulse Resp BP Pulse Ox O2 Del Method 02/26/23 23:26 36.9 C 65 18 122/71 96 Room Air 02/26/23 23:22 73 02/26/23 19:25 36.7 C 77 17 112/74 97 Room Air 02/26/23 14:51 37.0 C 69 18 106/65 97 Room Air 02/26/23 15:37 71 PG Care Time/CCT Total # of Minutes Spent Total Time Spent with Patient: Total time spent is greater than 50% in coordination of care (as documented) at patient's floor/unit and/or counseling patient: Coding Level of Care Code 15100 SUB INP/OBS CARE 2/35MIN Diagnoses Time Spent (min) 35
[2023-02-27] MEDS: MULTIVITAMIN TAB PO SCH (08:13)
[2023-02-27] MEDS: BUPRENORPHINE/NALOXONE 8/2 MG TAB SL SCH (08:13)
[2023-02-27] MEDS: SERTRALINE HCL 50 MG TABLET PO SCH (08:13)
[2023-02-27] MEDS ORDERED: PANTOprazole 40 MG TAB PO SCH (11:00)
[2023-02-27] MEDS: cefTRIAXone SODIUM 2,000 MG in DEXTROSE 5% 50 ML IV SCH (14:37)
--- NOTE | 2023-02-27 15:20 | Discharge Summary ---
Date of Service February 27, 2023 Admission HPI Per Admitting Provider 22 yo female with history of GERD, drug use, and was in rehab at [facility] presents with a 20 hour history of chest pain. Patient reports her pain was sharp, left sided and radiated to the back. She went to bed and woke up and continued having these symptoms. She was also found to have a HR in the 130s which prompted [facility] to bring her to the ED for evaluation. This was accompanied by fatigue, nausea. Patient reports no cough, fever chills, vomiting. Patient denies any sick contacts. Patient reports she did not vomit. Principal Diagnosis Septic shock due to strep pneumoniae bacteremia secondary to dense left lower lobe pneumococcal pneumonia community-acquired Discharge Exam Normocephalic atraumatic Constitutional WD/WN, vitals as above Eyes PERRL, conjunctivae normal, anicteric sclerae ENMT external ear and nose normal, oropharynx normal Neck trachea midline, no thyromegaly Cardiovascular RRR, no murmur, no edema Gastrointestinal (Abdomen) normal bowel sounds, soft, nontender, no hepatosplenomegaly Musculoskeletal no cyanosis or clubbing, extremities motor strength 5/5 Skin no rashes, warm and dry Neurologic PERRL, EOMI, accommodation nl, no face palsy, no dysarthria Psychiatric A+Ox3, euthymic affect Discharge Data Allergies Allergy/AdvReac Type Severity Reaction Status Date / Time pollen extracts Allergy Unknown Verified 02/22/23 16:30 Consultations 02/22/23 16:43 ED Decision to Admit Stat 02/25/23 12:26 Consult Pulmonology Routine Ordered Studies 02/22/23 14:02 CT abd pelvis IV con only Stat CT angio chest PE protocol Stat Hospital Course (1) Pneumonia: (2) Sepsis: (3) Acid reflux: (4) Depression: Total Time Total Time Spent Total Time Spent (In Minutes): 42 minutes Discharge Plan Discharge Items Patient Disposition: Home - Self-Care Reason For Visit: SEPSIS Discharge Diagnosis: Septic shock due to strep pneumoniae bacteremia due to pneumococcal pneumonia left lower lobe Condition on Discharge: Good Health Concerns: Maintenance of good health and restorative care Goals: Good healthy habits Activity: As commented below Activity Comment: Gradually resume your normal activity Lifting: Gradually increase as tolerated Bathing: No limitations Exercise/Sports: Gradually increase as tolerated Driving/Machine Use: No limitations Non-emergency contact: Primary Care Provider Call non-emergency contact if: you have any medication questions, your symptoms worsen and you have a fever Follow-up/Referrals: PCP,NO [Primary Care Provider] - Diet: Regular Addtl Attending Provider Instructions: Discharged to Mother with plan to complete [facility] Addtl Parking Technician Provider Instructions: na Pending Studies at Discharge: No Stand-Alone Forms: My [facility] [place], Smoking Cessation Medications and DC Order Prescriptions: New cefdinir 300 mg capsule 300 mg PO BID 10 Days Qty: 20 0RF Continued multivitamin Tablet 1 tab PO DAILY sertraline [Zoloft] 50 mg Tablet 50 mg PO DAILY buprenorphine-naloxone [Suboxone] 8-2 mg Film 1 film BUCCAL DAILY Discharge Orders: Discharge Order (Routine); Ordered 02/27/23 Ordered By: Gatito Mariee Admission Data Admit Date/Time: 02/22/23 18:55 Attending Provider: Gatito Mariee Admit Provider: George Sapp Primary Care Provider: PCP,NO Other Providers: George Sapp ; Jeanette Lopez Coding Level of Care Code 70461 INP/OBS DISCH >30 MIN Diagnoses Pneumonia J18.9 Sepsis A41.9 Acid reflux K21.9 Depression F32.A Time Spent (min) 42
== END 2023-02-27 16:04 | disposition alcohol treatment (31) | DRG 871 ==
LOC: ED 11:24 → 2S 18:55 → SUATTDRO 18:55 → 2S 21:40